=== PATIENT | female | born 2000 | race Caucasian/White ===

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

== ENCOUNTER 2021-04-06 10:44 | Emergency (ER) | payer OTHER ==
[~2021-04-06] VITALS: Ht 160 cm; Wt 49.0 kg
[2021-04-06] MEDS ORDERED: ONDANSETRON ODT4 MG PO (16:28)
[2021-04-06] MEDS ORDERED: LEVSIN/SL0.125 MG PO (16:28)
[2021-04-06] MEDS ORDERED: PEPCID AC20 MG PO (16:28)
== END 2021-04-06 17:12 ==
LOC: ER 10:44
DX: K52.89 Other specified noninfective gastroenteritis and colitis (principal); E86.0 Dehydration

== ENCOUNTER 2021-05-31 10:03 | Emergency (ER) | payer OTHER ==
[~2021-05-31] VITALS: Ht 160 cm; Wt 47.6 kg
[~2021-05-31 10:03] MED LIST: LEVSIN/SL0.125 MG PO; ONDANSETRON ODT4 MG PO; PEPCID AC20 MG PO
== END 2021-05-31 15:15 | disposition home or self-care (01) ==
LOC: ER 10:03
DX: R11.10 Vomiting, unspecified (principal)

== ENCOUNTER 2022-09-04 23:50 | Inpatient (IN) | payer OTHER ==
[~2022-09-04] VITALS: Ht 160 cm; Wt 52.6 kg
== END 2022-09-12 16:58 | disposition home or self-care (01) | DRG 418 ==
LOC: ER 23:50 → MEDJ 09-05 08:55
PROVIDERS: Surgery; ADMIT Internal Medicine; ATTEND Internal Medicine
PROC: BW40ZZZ Ultrasonography of Abdomen (ICD-10-PCS; 2022-09-05)
PROC: BF37ZZZ Magnetic Resonance Imaging (MRI) of Pancreas (ICD-10-PCS; 2022-09-05)
PROC: 0FC98ZZ Extirpation of Matter from Common Bile Duct, Via Natural or Artificial Opening Endoscopic (ICD-10-PCS; 2022-09-07)
PROC: 0F798ZZ Dilation of Common Bile Duct, Via Natural or Artificial Opening Endoscopic (ICD-10-PCS; 2022-09-07)
PROC: BF13YZZ Fluoroscopy of Gallbladder and Bile Ducts using Other Contrast (ICD-10-PCS; 2022-09-09)
PROC: 0FT44ZZ Resection of Gallbladder, Percutaneous Endoscopic Approach (ICD-10-PCS; principal; 2022-09-09 18:00)
DX: E80.6 Other disorders of bilirubin metabolism (principal); K80.10 Calculus of gallbladder with chronic cholecystitis without obstruction; K80.51 Calculus of bile duct without cholangitis or cholecystitis with obstruction; K82.8 Other specified diseases of gallbladder; Z20.822 Contact with and (suspected) exposure to COVID-19

== ENCOUNTER 2022-11-07 05:41 | Emergency (ER) | payer OTHER ==
[~2022-11-07] VITALS: Ht 160 cm; Wt 54.4 kg
[2022-11-07] MEDS ORDERED: PEPCID AC20 MG PO (15:11)
[2022-11-07] MEDS ORDERED: METOCLOPRAMIDE10 MG PO (15:11)
== END 2022-11-07 15:54 | disposition home or self-care (01) ==
LOC: ER 05:41
DX: R10.13 Epigastric pain (principal); R11.10 Vomiting, unspecified

== ENCOUNTER 2023-01-22 00:10 | Emergency (ER) | payer OTHER ==
[~2023-01-22] VITALS: Ht 160 cm; Wt 54.9 kg
[~2023-01-22 00:10] MED LIST changes: +METOCLOPRAMIDE10 MG PO
[2023-01-22 01:43] LABS: HEMATOCRIT 43.4 % (36.0-45.00); HEMOGLOBIN 14.7 g/dL (12.0-15.00); MEAN CELL VOLUME 81.3 fL (80.00-100.00); MEAN CORPUSCULAR HEMOGLOBIN 27.6 pg (27.00-32.0); MEAN CORPUSCULAR HGB CONC 33.9 g/dl (32.0-36.0); PLATELET COUNT 246 K/uL (150-450); RED BLOOD COUNT 5.34 M/uL (4.00-6.00)
[2023-01-22 02:17] LABS: ALBUMIN 4.4 gm/dL (3.4-5.0); BILIRUBIN TOTAL 1.04 mg/dL (0.3-1.2); BILIRUBIN,CONJUGATED 0.24 mg/dL (0.0-0.2); BILIRUBIN,UNCONJUGATED 0.8 mg/dL (0.0-0.6); CALCIUM 9.7 mg/dL (8.5-10.1); CREATININE SERUM 0.89 mg/dL (0.55-1.02); GFR 78.6; GLOBULINA 4.4 G/DL (2.4-3.5); POTASSIUM 3.66 mEq/L (3.5-5.1); TOTAL PROTEIN 8.8 gm/dL (6.4-8.2)
[2023-01-22 10:38] LABS: URINE APPEARANCE Clear; URINE BILIRRUBIN Negative (NEGATIVE); URINE BLOOD Negative; URINE COLOR Yellow; URINE GLUCOSE Negative (NEGATIVE); URINE LEUKOCYTE Negative; URINE NITRATE Negative; URINE PROTEIN 30 (NEGATIVE)
[2023-01-22 10:41] LABS: URINE EPITHELIAL CELLS 28.8 uL (0.0-38.8)
[2023-01-22 10:42] LABS: URINE BACTERIA 1145.1 uL (0.0-1933)
== END 2023-01-22 15:09 | disposition home or self-care (01) ==
LOC: ER 00:11
PROVIDERS: General Practice
DX: K29.60 Other gastritis without bleeding (principal); F41.9 Anxiety disorder, unspecified; R11.10 Vomiting, unspecified

== ENCOUNTER 2023-11-28 21:37 | Emergency (ER) | payer OTHER ==
[~2023-11-28] VITALS: Ht 160 cm; Wt 54.4 kg
[2023-11-28] MEDS ORDERED: PROMETHAZINE HCL 50 MG/ML AMPUL IV ONE (23:00)
[2023-11-28] MEDS ORDERED: FAMOtidine 10 MG/ML (4ML VIAL) IV ONE (23:00)
[2023-11-28] MEDS ORDERED: 0.9 % SODIUM CHLORIDE 1,000 ML IV ONE (23:15)
[2023-11-28] MEDS ORDERED: PROMETHAZINE HCL 50 MG/ML AMPUL IM ONE (23:30)
[2023-11-28 23:58] LABS: HEMATOCRIT 44.2 % (36.0-45.00); HEMOGLOBIN 15.2 g/dL (12.0-15.00); MEAN CELL VOLUME 82.3 fL (80.00-100.00); MEAN CORPUSCULAR HEMOGLOBIN 28.4 pg (27.00-32.0); MEAN CORPUSCULAR HGB CONC 34.5 g/dl (32.0-36.0); PLATELET COUNT 239 K/uL (150-450); RED BLOOD COUNT 5.37 M/uL (4.00-6.00); RED CELL DISTRIBUTION WIDTH 12.7 % (11.5-14.5)
[2023-11-29] MEDS ORDERED: METOCLOPRAMIDE HCL 5 MG/ML VIAL IM STA (01:38)
[2023-11-29] MEDS ORDERED: 0.9 % SODIUM CHLORIDE 1,000 ML IV ONE (01:45)
[2023-11-29 02:18] LABS: ALBUMIN 3.8 gm/dL (3.4-5.0); BILIRUBIN TOTAL 0.54 mg/dL (0.3-1.2); CALCIUM 8.9 mg/dL (8.5-10.1); CREATININE SERUM 0.76 mg/dL (0.55-1.02); GFR 93.5; GLOBULINA 4.1 G/DL (2.4-3.5); POTASSIUM 3.72 mEq/L (3.5-5.1); TOTAL PROTEIN 7.9 gm/dL (6.4-8.2)
[2023-11-29] MEDS ORDERED: METOCLOPRAMIDE10 MG PO (05:06)
[2023-11-29] MEDS ORDERED: ONDANSETRON ODT8 MG PO (05:06)
[2023-11-29] MEDS ORDERED: PEPCID40 MG PO (05:06)
== END 2023-11-29 05:15 ==
LOC: ER 21:38
PROVIDERS: General Practice
DX: R11.2 Nausea with vomiting, unspecified (principal)

== ENCOUNTER 2023-12-25 01:41 | Emergency (ER) | payer OTHER ==
[~2023-12-25] VITALS: Ht 160 cm; Wt 54.4 kg
[~2023-12-25 01:41] MED LIST changes: +ONDANSETRON ODT8 MG PO; +PEPCID40 MG PO
[2023-12-25] MEDS ORDERED: FAMOTIDINE/PF 20 MG/2 ML VIAL IV PUSH STA ×2 (02:57→07:24)
[2023-12-25] MEDS ORDERED: PROMETHAZINE HCL 50 MG/ML AMPUL IM STA (02:57)
[2023-12-25] MEDS ORDERED: 0.9 % SODIUM CHLORIDE 1,000 ML IV ONE (03:00)
[2023-12-25] MEDS ORDERED: PROMETHAZINE HCL 50 MG/ML AMPUL IM ONE (03:02)
[2023-12-25] MEDS ORDERED: FAMOTIDINE/PF 20 MG/2 ML VIAL ONE ×2 (03:02→07:36)
[2023-12-25 03:35] LABS: HEMATOCRIT 43.6 % (36.0-45.00); HEMOGLOBIN 14.8 g/dL (12.0-15.00); MEAN CELL VOLUME 80.7 fL (80.00-100.00); MEAN CORPUSCULAR HEMOGLOBIN 27.4 pg (27.00-32.0); MEAN CORPUSCULAR HGB CONC 33.9 g/dl (32.0-36.0); PLATELET COUNT 252 K/uL (150-450); RED CELL DISTRIBUTION WIDTH 12.9 % (11.5-14.5)
[2023-12-25] MEDS ORDERED: ONDANSETRON HCL 2 MG/ML VIAL IV STA (04:35)
[2023-12-25] MEDS ORDERED: ONDANSETRON HCL 2 MG/ML VIAL ONE (04:38)
[2023-12-25 04:53] LABS: ALBUMIN 4.4 gm/dL (3.4-5.0); BILIRUBIN TOTAL 0.67 mg/dL (0.3-1.2); CALCIUM 9.9 mg/dL (8.5-10.1); CREATININE SERUM 0.76 mg/dL (0.55-1.02); GFR 93.5; GLOBULINA 4.2 G/DL (2.4-3.5); POTASSIUM 3.68 mEq/L (3.5-5.1); TOTAL PROTEIN 8.6 gm/dL (6.4-8.2)
[2023-12-25 09:41] LABS: PH,URINE 5.5 (5.0-8.0); URINE APPEARANCE Clear; URINE BILIRRUBIN Negative (NEGATIVE); URINE BLOOD Negative; URINE COLOR Yellow; URINE GLUCOSE Negative (NEGATIVE); URINE LEUKOCYTE Negative; URINE NITRATE Negative; URINE PROTEIN Trace (NEGATIVE); URINE UROBILINOGEN 0.2 E.U./dl
[2023-12-25 09:43] LABS: URINE BACTERIA 806.3 uL (0.0-1933); URINE EPITHELIAL CELLS 23.6 uL (0.0-38.8); URINE WBC 8.6 uL (0.0-23.2)
[2023-12-25 10:03] LABS: URINE KETONE >=160 (NEGATIVE)
[2023-12-25] MEDS ORDERED: METOCLOPRAMIDE HCL 5 MG/ML VIAL IV ONE (11:30)
[2023-12-25] MEDS ORDERED: METOCLOPRAMIDE HCL 5 MG/ML VIAL ONE (11:39)
== END 2023-12-25 15:32 | disposition home or self-care (01) ==
LOC: ER 01:42
PROVIDERS: General Practice
DX: K29.70 Gastritis, unspecified, without bleeding (principal); R10.13 Epigastric pain

== ENCOUNTER 2024-04-18 22:34 | Emergency (ER) | payer OTHER ==
[~2024-04-18] VITALS: Ht 162.6 cm; Wt 63.5 kg
[2024-04-19] MEDS ORDERED: PROMETHAZINE HCL 25 MG/ML AMPUL IM STA (03:31)
[2024-04-19] MEDS ORDERED: METOCLOPRAMIDE HCL 5 MG/ML VIAL IM STA (03:31)
[2024-04-19] MEDS ORDERED: ONDANSETRON HCL 2 MG/ML VIAL IV STA (03:32)
[2024-04-19] MEDS ORDERED: 0.9 % SODIUM CHLORIDE 500 ML IV STA (03:32)
[2024-04-19] MEDS ORDERED: FAMOtidine 10 MG/ML (4ML VIAL) IV PUSH STA (03:33)
[2024-04-19] MEDS ORDERED: PROMETHAZINE HCL 25 MG/ML AMPUL ONE (03:36)
[2024-04-19] MEDS ORDERED: METOCLOPRAMIDE HCL 5 MG/ML VIAL ONE (03:36)
[2024-04-19] MEDS ORDERED: ONDANSETRON HCL 2 MG/ML VIAL ONE (03:36)
[2024-04-19] MEDS ORDERED: FAMOTIDINE/PF 20 MG/2 ML VIAL ONE (03:37)
== END 2024-04-19 06:06 | disposition home or self-care (01) ==
LOC: ER 22:37
DX: K29.70 Gastritis, unspecified, without bleeding (principal); R14.2 Eructation; K30 Functional dyspepsia; R14.3 Flatulence
CPT/HCPCS: 96365; 96366; 96372; 99282; J2250; J2405; J2765; J3490; J7042